=== PATIENT | female | born 1995 | race Caucasian/White ===

== ENCOUNTER 2020-04-08 19:30 | Emergency (ER) | payer BC ==
[~2020-04-08] VITALS: Ht 177.8 cm; Wt 127.0 kg
== END 2020-04-08 20:20 | disposition home or self-care (01) ==
LOC: ED 19:30
DX: S46.912A Strain of unspecified muscle, fascia and tendon at shoulder and upper arm level, left arm, initial encounter (principal); W10.9XXA Fall (on) (from) unspecified stairs and steps, initial encounter
CPT/HCPCS: 73030; 99283-25

== ENCOUNTER 2020-12-11 19:41 | Emergency (ER) | payer BC ==
[~2020-12-11] VITALS: Ht 177.8 cm; Wt 122.5 kg
[2020-12-11] MEDS ORDERED: METFORMIN HCL500 MG PO (21:33)
[2020-12-11] MEDS ORDERED: SPRINTEC1 EACH PO (21:33)
[2020-12-12] MEDS ORDERED: DICLOFENAC SODI75 MG PO (01:43)
== END 2020-12-12 02:19 | disposition home or self-care (01) ==
LOC: ED 19:41
DX: R07.89 Other chest pain (principal); Z79.84 Long term (current) use of oral hypoglycemic drugs; Z79.899 Other long term (current) drug therapy
CPT/HCPCS: 71045; 80053; 81001; 85025; 85379; 99285-25